=== PATIENT | female | born 1980 | race Caucasian/White ===

== ENCOUNTER 2020-07-17 12:58 | Emergency (ER) | payer BC ==
--- NOTE | 2020-07-17 13:12 | EDM.PDOC ---
ED HPI GENERAL MEDICAL PROBLEM - General Chief Complaint: Chest Pain Stated Complaint: CHEST PAIN X2-3DAYS Time Seen by Provider: 07/17/20 13:11 Source of Information: Reports: Patient History Limitations: Reports: No Limitations - History of Present Illness INITIAL COMMENTS - FREE TEXT/NARRATIVE: 40-year-old female attends the ED with left precordial chest discomfort for the last 3 days. She does not remember injuring it per se. However she does do a lot of lifting pushing and pulling in the workplace at [employer]. She can localize the pain very well to the left precordium adjacent to the sternum over the fourth rib. Does not hurt to breathe. She has no cough or sputum production. No fever or chills. She has no abdominal pain nausea vomiting and no trouble swallowing. She is a non-smoker. Reports the pain is constant with no sharp stabbing component. More of a dull ache. Onset: Gradual Onset Date: 07/14/20 Duration: Day(s):, Constant Location: Reports: Chest (Precordial chest which he is able to localize very well.) Quality: Reports: Ache, Dull Severity: Moderate Improves with: Reports: Medication (Motrin seems to help a little bit.) Worsens with: Reports: Movement (Activities such as pushing above her head seem to make it worse.) Associated Symptoms: Reports: No Other Symptoms Treatments [employer]: Reports: NSAIDS (Ibuprofen.) Left Chest Pain Score (Numeric/FACES): 4 - Related Data Allergies Allergy/AdvReac Type Severity Reaction Status Date / Time No Known Allergies Allergy Verified 07/17/20 13:05 Home Meds: Home Meds Levothyroxine [Sythroid] 125 mcg PO DAILY 06/09/14 [History] Diclofenac Sodium [Voltaren] 75 mg PO BIDMEALS #16 tab.cr 07/17/20 [Rx] Famotidine [Pepcid] 20 mg PO DAILY 07/17/20 [History] Nortriptyline 30 mg PO BEDTIME 07/17/20 [History] predniSONE [Prednisone] 20 mg PO BID #10 tablet 07/17/20 [Rx] Past Medical History Psychiatric History: Reports: Anxiety Endocrine/Metabolic History: Reports: Hypothyroidism (He is on levothyroxine) Dermatologic History: Reports: Other (See Below) Other Dermatologic History: skin lightening Social & Family History - Caffeine Use Caffeine Use: Reports: Coffee - Living Situation & Occupation Living situation: Reports: Occupation: Employed ED ROS GENERAL - Review of Systems Review Of Systems: See Below Constitutional: Denies: Fever, Chills, Malaise, Weakness, Fatigue, Decreased Appetite, Weight Loss HEENT: Reports: Glasses Respiratory: Reports: No Symptoms. Denies: Shortness of Breath, Wheezing, Pleuritic Chest Pain, Cough, Sputum Cardiovascular: Reports: Chest Pain. Denies: Blood Pressure Problem, Claudi cation, Dyspnea on Exertion, Edema, Lightheadedness, Orthopnea, Palpitations Endocrine: Reports: No Symptoms GI/Abdominal: Reports: No Symptoms : Reports: No Symptoms Musculoskeletal: Reports: No Symptoms Skin: Reports: No Symptoms Neurological: Reports: No Symptoms Psychiatric: Reports: Anxiety (He is on nortriptyline for this.) Hematologic/Lymphatic: Reports: No Symptoms ED EXAM, GENERAL - Physical Exam Exam: See Below Exam Limited By: No Limitations General Appearance: Alert, WD/WN, Anxious, Mild Distress, Other (Temperature is 37.2 heart rate was 88 and sinus respiratory is 18 BP initially was 172/88 but came down to 155/84 and then subsequently to 142/80. O2 sats 98% on room air.) Eye Exam: Bilateral Eye: Normal Inspection, PERRL Head: Atraumatic, Normocephalic Neck: Normal Inspection, Supple, Non-Tender, Full Range of Motion, Other. No: Carotid Bruit, Lymphadenopathy (L), Lymphadenopathy (R), Thyromegaly (No supraclavicular or infraclavicular adenopathy.) Respiratory/Chest: No Respiratory Distress, Lungs Clear, Normal Breath Sounds, Other (Chest is markedly tender over the left fourth rib and fifth rib in the midclavicular line) Cardiovascular: Normal Peripheral Pulses, Regular Rate, Rhythm, No Edema, No Murmur ( that appears to be the source of her pain.), No Rub Peripheral Pulses: 3+: Carotid (L), Carotid (R), Posterior Tibial (L), Posterior Tibial (R), Dorsalis Pedis (L), Dorsalis Pedis (R) GI/Abdominal: Normal Bowel Sounds, Soft, Non-Tender, No Organomegaly, No Abnormal Bruit, No Mass, Pelvis Stable, Other (No organomegaly identified. No previous abdominal surgery.) Extremities: Normal Inspection, Normal Range of Motion, Non-Tender, No Pedal Edema Neurological: Alert, Oriented, CN II-XII Intact, Normal Cognition Psychiatric: Anxious Skin Exam: Warm, Dry (Mildly anxious.), Intact, Normal Color, No Rash EKG INTERPRETATION EKG Date: 07/17/20 Time: 13:04 Rhythm: NSR Rate (Beats/Min): 80 Rowan: Normal P-Wave: Present QRS: Other (RSR prime wave V1 considered normal variant. Early R wave transition consider septal hypertrophy pattern. Probable left ventricular protuberant pattern due to tall R waves in lead I.) ST-T: Normal QT: Normal EKG Interpretation Comments: Abnormal ECG no signs of ischemia Course - Vital Signs Last Recorded V/S: Last Vital Signs Temp 37.2 C 07/17/20 13:00 Pulse 88 07/17/20 13:00 Resp 18 07/17/20 13:00 BP 172/88 H 07/17/20 13:00 Pulse Ox 98 07/17/20 13:00 - Orders/Labs/Meds Orders: Active Orders 24 hr Category Date Time Status Peripheral IV Care [RC] . DIRECTED Care 07/17/20 13:28 Active Ketorolac [Toradol] Med 07/17/20 13:30 Active 30 mg IVPUSH ONETIME Sodium Chloride 0.9% [Saline Flush] Med 07/17/20 13:28 Active 10 ml FLUSH ASDIRECTED PRN Peripheral IV Insertion Adult [OM.PC] Stat Oth 07/17/20 13:28 Ordered Medication Orders Ketorolac Tromethamine (Toradol) 30 mg IVPUSH ONETIME MYAH Sodium Chloride (Saline Flush) 10 ml FLUSH ASDIRECTED PRN PRN Reason: Keep Vein Open Labs: Laboratory Tests 07/17/20 07/17/20 Range/Units 13:05 13:05 WBC 8.33 (3.98-10.04) K/mm3 RBC 5.09 (3.98-5.22) M/mm3 Hgb 14.9 (11.2-15.7) gm/dl Hct 44.3 (34.1-44.9) % MCV 87.0 (79.4-94.8) fl MCH 29.3 (25.6-32.2) pg MCHC 33.6 (32.2-35.5) g/dl RDW Std Deviation 41.3 (36.4-46.3) fL Plt Count 327 D (182-369) K/mm3 MPV 10.8 (9.4-12.3) fl Neut % (Auto) 68.8 (34.0-71.1) % Lymph % (Auto) 22.7 (19.3-51.7) % Lucas % (Auto) 7.7 (4.7-12.5) % Eos % (Auto) 0.6 L (0.7-5.8) Baso % (Auto) 0.2 (0.1-1.2) % Neut # (Auto) 5.73 (1.56-6.13) K/mm3 Lymph # (Auto) 1.89 (1.18-3.74) K/mm3 Lucas # (Auto) 0.64 H (0.24-0.36) K/mm3 Eos # (Auto) 0.05 (0.04-0.36) K/mm3 Baso # (Auto) 0.02 (0.01-0.08) K/mm3 Sodium 138 (136-145) mEq/L Potassium 3.6 (3.5-5.1) mEq/L Chloride 102 (98-107) mEq/L Carbon Dioxide 26 (21-32) mEq/L Anion Gap 13.6 (5-15) BUN 14 (7-18) mg/dL Creatinine 0.8 (0.55-1.02) mg/dL Est Cr Clr Drug Dosing 75.78 mL/min Estimated GFR (MDRD) > 60 (>60) mL/min BUN/Creatinine Ratio 17.5 (14-18) Glucose 119 H (74-106) mg/dL Calcium 9.1 (8.5-10.1) mg/dL Magnesium 1.9 (1.8-2.4) mg/dl Total Bilirubin 0.3 (0.2-1.0) mg/dL AST 18 (15-37) U/L ALT 32 (14-59) U/L Alkaline Phosphatase 71 (46-116) U/L Troponin I < 0.017 (0.00-0.056) ng/mL C-Reactive Protein < 0.2 (<1.0) mg/dL Total Protein 8.4 H (6.4-8.2) g/dl Albumin 4.2 (3.4-5.0) g/dl Globulin 4.2 gm/dL Albumin/Globulin Ratio 1.0 (1-2) Meds: Medications Generic Name Dose Route Start Last Admin Trade Name Camachoq PRN Reason Stop Dose Admin Ketorolac Tromethamine 30 mg 07/17/20 13:30 Toradol IVPUSH ONETIME MYAH Sodium Chloride 10 ml 07/17/20 13:28 Saline Flush FLUSH ASDIRECTED PRN Keep Vein Open - Radiology Interpretation Free Text/Narrative:: 40-year-old female presents to the ED for evaluation of left precordial chest discomfort that she has had for the better part of 3 days. No known injuries to this area. She is able to localize the area of pain over the fourth costochondral junction and on exam has pain both in the fourth and fifth costochondral junction areas. Lungs are clear to all station percussion ECG suggest left ventricular hypertrophy pattern possibly due to uncontrolled hypertension. No signs of ischemia. Plan 1 view chest x-ray routine labs to include cardiac markers and CRP. Given Toradol 30 mg IV. - Re-Assessments/Exams Free Text/Narrative Re-Assessment/Exam: 07/17/20 13:51 chest x-ray done portable reveals normal cardiac silhouette. There is a slight haziness adjacent to the medial heart border in the right middle lobe. Can be vasculature versus small amount of atelectasis. Unlikely to be pneumonia since she has no cough or fever. 07/17/20 13:52 White count is 8.33 with 69% neutrophils. Hemoglobin is 14.9 with hematocrit of 44.3. Platelet counts 327,000. Sodium is 138 with a potassium of 3.6. Chloride 102 with a bicarb of 26. Anion gap is 13.6. BUN is 14 with a creatinine of 0.8. GFR is greater than 60. Glucose 119. Calcium 9.1. Magnesium 1.9. Liver function normal troponin I is less than 0.017. C- reactive protein is less than 0.2. Total protein is 8.4 slightly elevated and albumin fraction is 4.2. 07/17/20 13:54 discussed the results with the patient. It appears that this is chest wall pain. Will be treated with prednisone 20 mg twice daily for 5 days and Voltaren 5 mg by mouth twice daily for the next 8 days to clear up inflammation. Be given to excuse her from work today although she put in most of the days work before she came to the ED. Departure - Departure Time of Disposition: 14:24 Disposition: Home, Self-Care 01 Condition: Fair Clinical Impression: Non-cardiac chest pain, Anterior chest wall pain Prescriptions: predniSONE [Prednisone] 20 mg PO BID #10 tablet Diclofenac Sodium [Voltaren] 75 mg PO BIDMEALS #16 tab.cr Referrals: PCP,None [Primary Care Provider] - Forms: ED Department Discharge Additional Instructions: Valuation in the ER today in regards to left anterior chest pain that is worsened by certain movements and is well localized to the left fourth and fifth ribs midclavicular line and over the osteochondral joints where the rib joins onto the breastbone. This inflammation can be caused by a viral infection but it is more likely to be due to chest wall muscle overuse such as increased pushing pulling and lifting. Treatment is anti-inflammatory medicine prednisone 20 mg twice daily with breakfast and supper for the next 5 days. Anti- inflammatory Voltaren 75 mg twice daily with food for the next 8 days to clear up inflammation and pain. You can also use Tylenol 650 mg every 6 hours if necessary for pain relief as it works completely differently than the anti- inflammatory medicines. Expect gradual improvement over the next 3 to 5 days. Sepsis Event Note (ED) - Focused Exam Vital Signs: Vital Signs Temp Pulse Resp BP Pulse Ox 07/17/20 13:00 37.2 C 88 18 172/88 H 98 - My Orders Last 24 Hours: My Active Orders 07/17/20 13:28 Peripheral IV Care [RC] . DIRECTED Sodium Chloride 0.9% [Saline Flush] 10 ml FLUSH ASDIRECTED PRN Peripheral IV Insertion Adult [OM.PC] Stat 07/17/20 13:30 Ketorolac [Toradol] 30 mg IVPUSH ONETIME - Assessment/Plan Last 24 Hours: My Active Orders 07/17/20 13:28 Peripheral IV Care [RC] . DIRECTED Sodium Chloride 0.9% [Saline Flush] 10 ml FLUSH ASDIRECTED PRN Peripheral IV Insertion Adult [OM.PC] Stat 07/17/20 13:30 Ketorolac [Toradol] 30 mg IVPUSH ONETIME
[2020-07-17] MEDS ORDERED: Sodium Chloride 0.9% 10 ML Syringe FLUSH PRN (13:28)
[2020-07-17] MEDS ORDERED: Ketorolac 30 MG/ML SDV IVPUSH SCH (13:30)
--- NOTE | 2020-07-17 13:47 | CR ---
Chest: Portable view of the chest was obtained. Comparison: No prior chest x-ray. Slight density is seen silhouetting the right heart margin. Lungs otherwise are clear. Bony structures are grossly intact. Impression: 1. Equivocal parenchymal density silhouetting the right heart margin which would be within the right middle lobe. Difficult to exclude small area of pneumonia or atelectasis. 2. No additional abnormality is appreciated on portable chest x-ray. Diagnostic code #3 This report was dictated in MDT
== END 2020-07-17 14:45 | disposition home or self-care (01) ==
LOC: JD.ED 12:58
DX: R07.89 Other chest pain (principal); F41.9 Anxiety disorder, unspecified; E03.9 Hypothyroidism, unspecified; Z79.899 Other long term (current) drug therapy
CPT/HCPCS: 36415; 71045; 80053; 83735; 84484; 85025; 86140; 96374; 99285; J1885; 99284